=== PATIENT | female | born 1960 | race Caucasian/White ===

== ENCOUNTER 2018-01-22 06:26 | Day surgery (SDC) | payer OTHER ==
[2018-01-17 11:16] VITALS: BMI 26.4
[~2018-01-22 06:26] MED LIST: LACTATED RINGERS 1,000 ML IV SCH
[2018-01-22] MEDS ORDERED: LACTATED RINGERS 1,000 ML IV ONE ×2 (07:20)
[2018-01-22 07:24] VITALS: RESP 16; TEMP 98.4
[2018-01-22] MEDS ORDERED: LIDOCAINE 1% 20 ML VIAL (10MG/ML) FOR IV START INTRADERMA ONE (07:27)
[2018-01-22] MEDS ORDERED: PROPOFOL 10 MG/ML 20 ML VIAL IV ONE (07:33)
[2018-01-22] MEDS ORDERED: LIDOCAINE 1% INJ 10MG/ML (20 ML MDV) ONE (07:33)
--- NOTE | 2018-01-22 07:51 | P.GSHP ---
History of Present Illness H&P Date: 01/22/18 CHIEF COMPLAINT: Colon screen HISTORY OF PRESENT ILLNESS: The patient is a 57-year-old female who presents for colon screen. Lower endoscopy was offered for further evaluation and management. PAST MEDICAL HISTORY: Please see list. PAST SURGICAL HISTORY: Please see list. MEDICATIONS: Please see list. ALLERGIES: Please see list. SOCIAL HISTORY: No illicit drug use FAMILY HISTORY: No reports of Crohn disease or ulcerative colitis. REVIEW OF ORGAN SYSTEMS: CONSTITUTIONAL: No reports of fevers or chills. PHYSICAL EXAM: VITAL SIGNS: Stable GENERAL: Well-developed pleasant in no acute distress. HEENT: No scleral icterus. Extraocular movements grossly intact. Moist buccal mucosa. NECK: Supple without lymphadenopathy. CHEST: Unlabored respirations. Equal bilateral excursions. CARDIOVASCULAR: Regular rate and rhythm. Distal 2+ pulses. ABDOMEN: Soft, nontender, nondistended. MUSCULOSKELETAL: No clubbing, cyanosis, or edema. ASSESSMENT: 1. Colon screen. PLAN: 1. Recommend proceeding with a lower endoscopy Past Medical History Past Medical History: Hyperlipidemia, Thyroid Disorder History of Any Multi-Drug Resistant Organisms: None Reported Past Surgical History: Orthopedic Surgery, Tubal Ligation Additional Past Surgical History / Comment(s): BILAT CTR. LT LITTLE FINGER SX Past Anesthesia/Blood Transfusion Reactions: No Reported Reaction Additional Past Anesthesia/Blood Transfusion Reaction / Comment(s): SLOW TO WAKE UP Smoking Status: Current every day smoker - Past Family History Mother Family Medical History: Cancer Father Family Medical History: Cancer Medications and Allergies Home Medications Medication Instructions Recorded Confirmed Type Cholecalciferol [Vitamin D3] 3,000 unit PO DAILY 01/17/18 01/22/18 History Levothyroxine Sodium [Synthroid] 37.5 mcg PO Q2D 01/17/18 01/22/18 History Levothyroxine Sodium [Synthroid] 200 mcg PO DAILY 01/17/18 01/22/18 History Simvastatin [Zocor] 20 mg PO HS 01/17/18 01/22/18 History Allergies Allergy/AdvReac Type Severity Reaction Status Date / Time No Known Allergies Allergy Verified 01/22/18 07:18 Surgical - Exam Vital Signs Temp Pulse Resp BP Pulse Ox 98.4 F 86 16 140/89 98 01/22/18 07:22 01/22/18 07:22 01/22/18 07:22 01/22/18 07:22 01/22/18 07:22
--- NOTE | 2018-01-22 08:06 | P.PCN ---
Date of Procedure: 01/22/18 Description of Procedure: PREOPERATIVE DIAGNOSIS: Colonoscopy screening. POSTOPERATIVE DIAGNOSIS: Colonoscopy screening. Ascending colon polyp Descending and sigmoid colon diverticulosis OPERATION: Colonoscopy to the ileocecal valve and appendiceal orifice. Colonoscopy with cold forceps biopsy. SURGEON: Kaila Villarreal MD. ANESTHESIA: MAC. INDICATIONS: The patient is a 57-year-old female who presents for colonoscopy screening. Benefits and risks were described and informed consent was obtained. DESCRIPTION OF PROCEDURE: The patient had undergone Gatorade, MiraLAX and Dulcolax prep. She had been brought into the operating room and laid in the left lateral decubitus position. After adequate intravenous sedation, the rectum was examined with 2% lidocaine jelly. No external hemorrhoids were encountered. The rectal tone was within normal limits. No lesions were palpated in the rectal vault. An Olympus colonoscope was advanced until the ileocecal valve and appendiceal orifice were clearly viewed. The prep was fair with visualization however, moderate corn was found. The scope was removed to visualize the mucosal folds. Scattered diverticulosis was found along the descending and sigmoid colon. Ascending colon polyp, flat 4 mm was treated with cold forcep biopsy. No evidence of focal colitis was found. Retroflexion of the scope demonstrated no grade 1 internal hemorrhoids. The colon was desufflated. The patient had tolerated the procedure well. Withdrawal time was over 6 minutes. FINDINGS: No internal hemorrhoids. Sigmoid descending diverticulosis No external hemorrhoids. No arteriovenous malformations. Removal of 1 polyps from the ascending colon: - Cold forceps biopsy ascending colon, 4 mm flat villous polyp. No focal colitis. RECOMMENDATIONS: Repeat colonoscopy in 3 years, 2020 Plan - Discharge Summary New Discharge Prescriptions: No Action Cholecalciferol [Vitamin D3] 3,000 unit PO DAILY Simvastatin [Zocor] 20 mg PO HS Levothyroxine Sodium [Synthroid] 37.5 mcg PO Q2D Levothyroxine Sodium [Synthroid] 200 mcg PO DAILY Discharge Medication List Cholecalciferol [Vitamin D3] 3,000 unit PO DAILY 01/17/18 [History] Levothyroxine Sodium [Synthroid] 37.5 mcg PO Q2D 01/17/18 [History] Levothyroxine Sodium [Synthroid] 200 mcg PO DAILY 01/17/18 [History] Simvastatin [Zocor] 20 mg PO HS 01/17/18 [History]
[2018-01-22 08:37] VITALS: BP 149/90; PULSE 77
== END 2018-01-22 08:52 | disposition home or self-care (01) ==
LOC: ORWHC2ENDO 06:26
PROVIDERS: ATTEND Surgery Plastic and Reconstructive Surgery
DX: Z12.11 Encounter for screening for malignant neoplasm of colon (principal); D12.2 Benign neoplasm of ascending colon; E78.5 Hyperlipidemia, unspecified; E07.9 Disorder of thyroid, unspecified; K57.30 Diverticulosis of large intestine without perforation or abscess without bleeding; F17.210 Nicotine dependence, cigarettes, uncomplicated; Z98.51 Tubal ligation status; Z79.899 Other long term (current) drug therapy
CPT/HCPCS: 88305; 45380; J2001; J2704

== ENCOUNTER → 2018-05-08 | Outpatient (CLI) | payer OTHER ==
--- NOTE | 2018-05-14 08:58 | MM ---
Reason for exam: screening (asymptomatic). Last mammogram was performed 6 years and 10 months ago. History: Patient is postmenopausal. Family history of breast cancer in maternal aunt. Physical Findings: A clinical breast exam by your physician is recommended on an annual basis and results should be correlated with mammographic findings. MG Screening Mammo w CAD Bilateral CC and MLO view(s) were taken. Prior study comparison: July 16, 2011, bilateral digital screening mammo w/CAD. June 01, 2005, bilateral screening mammogram w/CAD. The breast tissue is heterogeneously dense. This may lower the sensitivity of mammography. No suspicious abnormality. No significant changes when compared with prior studies. ASSESSMENT: Negative, BI-RAD 1 RECOMMENDATION: Routine screening mammogram of both breasts in 1 year.
== END | disposition home or self-care (01) ==
LOC: RADMAMWWP 09:57
PROVIDERS: ATTEND Family Medicine
DX: Z12.31 Encounter for screening mammogram for malignant neoplasm of breast (principal)
CPT/HCPCS: 77067

== ENCOUNTER → 2019-01-25 | Outpatient (CLI) | payer OTHER ==
--- NOTE | 2019-01-25 11:37 | US ---
EXAMINATION TYPE: US extremity nonvasc mass RT DATE OF EXAM: 01/25/2019 COMPARISON: NONE CLINICAL HISTORY: R22.41, SWELLING MASS, RT LOWER LIMB. Patient has lump behind right knee that is visible. Scanned directly over lump, right pop fossa. There is a 6.5 x 2.0 x 3.cm complex fluid collection not ed. Pop fossa vessels are patent. IMPRESSION: 1. 6.5 CM RIGHT POPLITEAL FOSSA CYST. 2. NO EVIDENCE OF DVT.
== END | disposition home or self-care (01) ==
LOC: RADUSMAIN 10:48
PROVIDERS: ATTEND Internal Medicine
DX: M71.21 Synovial cyst of popliteal space [Baker], right knee (principal)

== ENCOUNTER → 2021-10-27 | Outpatient (CLI) | payer OTHER | END | disposition home or self-care (01) | LOC: LABWHC1 12:42 | PROVIDERS: ATTEND Family Medicine | DX: Z20.822 Contact with and (suspected) exposure to COVID-19 (principal) | CPT/HCPCS: U0003; C9803; U0005 ==

== ENCOUNTER → 2021-11-03 | Outpatient (CLI) | payer OTHER | END | disposition home or self-care (01) | LOC: LABWHC1 14:16 | PROVIDERS: ATTEND Family Medicine | DX: Z20.822 Contact with and (suspected) exposure to COVID-19 (principal) | CPT/HCPCS: U0003; C9803; U0005 ==

== ENCOUNTER 2022-09-12 15:27 | Inpatient (IN) | payer OTHER ==
[2022-09-12 17:45] LABS: Appearance,Urine Clear (Clear); Bilirubin,Urine Negative (Negative); Blood,Urine Negative (Negative); Color,Urine Colorless; Glucose,Urine (UA) Negative (Negative); Ketones,Urine Negative (Negative); Leukocyte Esterase,Urine Negative (Negative); Nitrite,Urine Negative (Negative); PH, Urine 5.5 (5.0-8.0); Protein,Urine Negative (Negative); Specific Gravity,Urine 1.004 (1.001-1.035); Urobilinogen,Urine <2.0 mg/dL (<2.0)
[2022-09-12] MEDS ORDERED: MORPHINE SULFATE 4 MG/ML SYRINGE IVP STA (22:05)
[2022-09-12 22:26] LABS: Basophils # (A) 0.1 k/uL (0-0.2); Basophils % (A) 1 %; Eosinophils # (A) 0.2 k/uL (0-0.7); Eosinophils % (A) 2 %; HCT 42.3 % (34.0-46.0); HGB 14.3 gm/dL (11.4-16.0); Lymphocytes # (A) 2.3 k/uL (1.0-4.8); Lymphocytes % (A) 24 %; MCH 31.9 pg (25.0-35.0); MCHC 33.7 g/dL (31.0-37.0); MCV 94.7 fL (80.0-100.0); Mean Platelet Volume 8.3; Monocytes # (A) 0.5 k/uL (0-1.0); Monocytes % (A) 6 %; Neutrophils # (A) 6.2 k/uL (1.3-7.7); Neutrophils % (A) 66 %; Platelet Count 250 k/uL (150-450); RBC 4.47 m/uL (3.80-5.40); RDW 12.4 % (11.5-15.5); WBC 9.4 k/uL (3.8-10.6)
[2022-09-12 22:40] LABS: ALT 23 U/L (4-34); AST 30 U/L (14-36); African American GFR (CKD) >90 (>60 ml/min/1.73 sqM); Albumin 4.7 g/dL (3.5-5.0); Alkaline Phosphatase 86 U/L (38-126); Anion Gap 5 mmol/L; Blood Urea Nitrogen 11 mg/dL (7-17); Calcium 9.2 mg/dL (8.4-10.2); Carbon Dioxide 28 mmol/L (22-30); Chloride 105 mmol/L (98-107); Glucose 89 mg/dL (74-99); Non-African American GFR(CKD) 90 (>60 ml/min/1.73 sqM); Sodium 138 mmol/L (137-145); Total Bilirubin 0.7 mg/dL (0.2-1.3); Total Protein 7.4 g/dL (6.3-8.2)
--- NOTE | 2022-09-12 23:54 | CT ---
EXAMINATION TYPE: CT abdomen pelvis w con DATE OF EXAM: 09/12/2022 COMPARISON: None HISTORY: Back pain x [address] DLP: 626.1 mGycm Automated exposure control for dose reduction was used. CONTRAST: Performed with IV Contrast, patient injected with 100ml mL of Isovue 300. Images obtained from the diaphragm to the floor the pelvis with the IV contrast. The lung bases are clear. No pleural effusion. Heart size is normal. No pericardial effusion. Liver s pleen and stomach pancreas gallbladder appear intact. The bile ducts are not dilated. There is no adrenal mass. There is significant right-sided hydronephrosis. Delayed images show a stevan yed right-sided pyelogram. There is no retroperitoneal adenopathy. The lumbar vertebrae have normal alignment. No compression fracture. There is degenerative disc space narrowing at L4-5 and L5-S1. Facet joints are intact. The bony pelvis is intact. The hip joints are intact. There is no mesenteric edema. No ascites. No sign of free air. Appendix is posterior and appears norm al. There are multiple sigmoid diverticula. No sign of diverticulitis. IMPRESSION: There is significant right-sided hydronephrosis without renal atrophy. Obstructing calculus not seen. This could be UPJ obstruction. Normal appendix. Sigmoid diverticulosis.
[2022-09-13] MEDS ORDERED: NALOXONE 0.4 MG/ML 1 ML VIAL IV PRN (01:33)
[2022-09-13] MEDS ORDERED: MORPHINE SULFATE 4 MG/ML SYRINGE IV PRN (01:33)
--- NOTE | 2022-09-13 01:33 | ED ---
Female Urogenital HPI - General Chief complaint: Urogenital Stated complaint: irregular ultrasound Time Seen by Provider: 09/12/22 21:54 Source: patient Mode of arrival: ambulatory Limitations: no limitations - History of Present Illness Initial comments: 52-year-old female with past medical history of hyperlipidemia who presents to the emergency Department with abnormal ultrasound. She has had right-sided back pain for the past 3 days. She saw her primary care doctor who sent her for an ultrasound. Ultrasound was performed today as an outpatient study. I saw that the patient had significant right-sided hydronephrosis. Because of this they re commended that she come into the ER. Patient reports to 10 out of 10 pain. Has been urinating without difficulty. No history of kidney issues. No hematuria or dysuria. Denies history of renal stones. She denies any fevers. No nausea or vomiting. No radiation of the pain. No other alleviating, precipitating or modifying factors - Related Data Home Medications Medication Instructions Recorded Confirmed Levothyroxine Sodium [Synthroid] 37.5 mcg PO Q2D 01/17/18 09/13/22 Levothyroxine Sodium [Synthroid] 200 mcg PO DAILY 01/17/18 09/13/22 Simvastatin [Zocor] 20 mg PO HS 01/17/18 09/13/22 Cholecalciferol (Vitamin D3) 75 mcg PO DAILY 09/13/22 09/13/22 [Vitamin D3 (3000 Iu)] Previous Rx's Medication Instructions Recorded HYDROcodone/APAP 5-325MG [[place] 1 tab PO Q6HR PRN 3 Days #10 tab 09/14/22 5-325] Ketorolac [Toradol] 10 mg PO Q6HR PRN #15 tab 09/14/22 Allergies Allergy/AdvReac Type Severity Reaction Status Date / Time No Known Allergies Allergy Verified 09/13/22 08:04 Review of Systems ROS Statement: Those systems with pertinent positive or pertinent negative responses have been documented in the HPI. ROS Other: All systems not noted in ROS Statement are negative. Past Medical History Past Medical History: Hyperlipidemia, Thyroid Disorder History of Any Multi-Drug Resistant Organisms: None Reported Past Surgical History: Orthopedic Surgery, Tubal Ligation Additional Past Surgical History / Comment(s): BILAT CTR. LT LITTLE FINGER SX Past Anesthesia/Blood Transfusion Reactions: No Reported Reaction Additional Past Anesthesia/Blood Transfusion Reaction / Comment(s): SLOW TO WAKE UP Past Psychological History: No Psychological Hx Reported Smoking Status: Current every day smoker Past Alcohol Use History: None Reported Past Drug Use History: None Reported - Past Family History Mother Family Medical History: Cancer Father Family Medical History: Cancer General Exam Limitations: no limitations General appearance: alert, in no apparent distress Head exam: Present: atraumatic, normocephalic, normal inspection Eye exam: Present: normal appearance, PERRL, EOMI. Absent: scleral icterus, conjunctival injection, periorbital swelling ENT exam: Present: normal exam, mucous membranes moist Neck exam: Present: normal inspection. Absent: tenderness, meningismus, lymphadenopathy Respiratory exam: Present: normal lung sounds bilaterally. Absent: respiratory distress, wheezes, rales, rhonchi, stridor Cardiovascular Exam: Present: regular rate, normal rhythm, normal heart sounds. Absent: systolic murmur, diastolic murmur, rubs, gallop, clicks GI/Abdominal exam: Present: soft, normal bowel sounds. Absent: distended, tenderness, guarding, rebound, rigid Extremities exam: Present: normal inspection, full ROM, normal capillary refill. Absent: tenderness, pedal edema, joint swelling, calf tenderness Back exam: Present: CVA tenderness (R) Neurological exam: Present: alert, oriented X3, CN II-XII intact Psychiatric exam: Present: normal affect, normal mood Skin exam: Present: warm, dry, intact, normal color. Absent: rash Course Vital Signs 09/12/22 09/12/22 09/13/22 16:36 21:57 02:19 Temperature 97.6 F 98.4 F 98.7 F Pulse Rate 77 82 72 Respiratory 18 16 16 Rate Blood Pressure 141/86 142/85 138/74 O2 Sat by Pulse 97 100 97 Oximetry Medical Decision Making - Medical Decision Making Upon arrival patient was placed into room 15. Thorough history and physical exam was performed. IV is established. I did review the patient's ultrasound which demonstrated significant right-sided hydronephrosis. I recommended follow-up CT which is performed and images are interpreted by myself. There is significant right-sided hydronephrosis without renal atrophy. Obstructing calculus not seen. Possible UPJ obstruction. These results are discussed the patient. She was given 4 mg of morphine for pain control. Patient is reevaluat ed and states that the pain is tolerable at this time however still pretty significant. I did discuss diagnosis, differential and treatment options. Called and spoke with Dr. Tinajero. He states that he will obstipation overnight if the patient was agreeable for evaluation in the morning. Patient was agreeable to this. She is awaiting a bed on the floor in stable condition - Lab Data Result diagrams: 09/14/22 05:34 09/14/22 05:34 Lab Results 09/12/22 09/12/22 09/12/22 Range/Units 16:52 22:11 22:11 WBC 9.4 (3.8-10.6) k/uL RBC 4.47 (3.80-5.40) m/uL Hgb 14.3 (11.4-16.0) gm/dL Hct 42.3 (34.0-46.0) % MCV 94.7 (80.0-100.0) fL MCH 31.9 (25.0-35.0) pg MCHC 33.7 (31.0-37.0) g/dL RDW 12.4 (11.5-15.5) % Plt Count 250 (150-450) k/uL MPV 8.3 Neutrophils % 66 % Lymphocytes % 24 % Monocytes % 6 % Eosinophils % 2 % Basophils % 1 % Neutrophils # 6.2 (1.3-7.7) k/uL Lymphocytes # 2.3 (1.0-4.8) k/uL Monocytes # 0.5 (0-1.0) k/uL Eosinophils # 0.2 (0-0.7) k/uL Basophils # 0.1 (0-0.2) k/uL Sodium 138 (137-145) mmol/L Potassium 4.0 (3.5-5.1) mmol/L Chloride 105 (98-107) mmol/L Carbon Dioxide 28 (22-30) mmol/L Anion Gap 5 mmol/L BUN 11 (7-17) mg/dL Creatinine 0.72 (0.52-1.04) mg/dL Est GFR (CKD-EPI)AfAm >90 (>60 ml/min/1.73 sqM) Est GFR (CKD-EPI)NonAf 90 (>60 ml/min/1.73 sqM) Glucose 89 (74-99) mg/dL Calcium 9.2 (8.4-10.2) mg/dL Total Bilirubin 0.7 (0.2-1.3) mg/dL AST 30 (14-36) U/L ALT 23 (4-34) U/L Alkaline Phosphatase 86 (38-126) U/L Total Protein 7.4 (6.3-8.2) g/dL Albumin 4.7 (3.5-5.0) g/dL Urine Color Colorless Urine Appearance Clear (Clear) Urine pH 5.5 (5.0-8.0) Ur Specific [place] 1.004 (1.001-1.035) Urine Protein Negative (Negative) Urine Glucose (UA) Negative (Negative) Urine Ketones Negative (Negative) Urine Blood Negative (Negative) Urine Nitrite Negative (Negative) Urine Bilirubin Negative (Negative) Urine Urobilinogen <2.0 (<2.0) mg/dL Ur Leukocyte Esterase Negative (Negative) Disposition Clinical Impression: Right flank pain, Hydronephrosis Disposition: ADMITTED IP TO THIS [facility] Condition: Good Is patient prescribed a controlled substance at d/c from ED?: No Time of Disposition: Decision to Admit Reason: Admit from [facility] Decision Date: 09/13/22 Decision Time:
[2022-09-13] MEDS ORDERED: KETOROLAC 15 MG/ML 1 ML VIAL IVP PRN (11:26)
--- NOTE | 2022-09-13 14:39 | P.GSHP ---
History of Present Illness H&P Date: 09/13/22 Chief Complaint: Right hydronephrosis This is a 62-year-old female that presented to the hospital with severe right- sided flank pain associated with nausea. Underwent a CT abdomen and pelvis on presentation that showed evidence of severe right-sided hydronephrosis with gil sition point at the UPJ. Denies any previous history of flank pain or similar symptoms in the past. Denies any dysuria or gross hematuria. Denies any previous renal or abdominal surgeries. No known family history of renal malignancy. Since admission she is still having right-sided flank pain but slightly improved. Denies any association between fluid intake and her flank pain - Constitutional Constitutional: Denies chills, Denies fever - EENT Ears, nose, mouth and throat: Denies headache, Denies sore throat - Cardiovascular Cardiovascular: Denies chest pain, Denies shortness of breath - Respiratory Respiratory: Denies cough, Denies 7 - Gastrointestinal Gastrointestinal: Reports nausea, Denies vomiting - Genitourinary (Female) Genitourinary: Reports flank pain, Denies dysuria, Denies hematuria - Genitourinary (Male) Genitourinary: Denies dysuria, Denies hematuria - Neurological Neurological: Denies numbness, Denies weakness Past Medical History Past Medical History: Hyperlipidemia, Thyroid Disorder History of Any Multi-Drug Resistant Organisms: None Reported Past Surgical History: Orthopedic Surgery, Tubal Ligation Additional Past Surgical History / Comment(s): thyroidectomy. LT LITTLE FINGER SX Past Anesthesia/Blood Transfusion Reactions: No Reported Reaction Additional Past Anesthesia/Blood Transfusion Reaction / Comment(s): SLOW TO WAKE UP Past Psychological History: No Psychological Hx Reported Smoking Status: Current every day smoker Past Alcohol Use History: None Reported Additional Past Alcohol Use History / Comment(s): SMOKES 1 PPD SINCE 1977 Past Drug Use History: None Reported - Past Family History Mother Family Medical History: Cancer Father Family Medical History: Cancer Medications and Allergies Home Medications Medication Instructions Recorded Confirmed Type Levothyroxine Sodium [Synthroid] 37.5 mcg PO Q2D 01/17/18 09/13/22 History Levothyroxine Sodium [Synthroid] 200 mcg PO DAILY 01/17/18 09/13/22 History Simvastatin [Zocor] 20 mg PO HS 01/17/18 09/13/22 History Cholecalciferol (Vitamin D3) 75 mcg PO DAILY 09/13/22 09/13/22 History [Vitamin D3 (3000 Iu)] Allergies Allergy/AdvReac Type Severity Reaction Status Date / Time No Known Allergies Allergy Verified 09/13/22 08:04 Surgical - Exam Vital Signs Temp Pulse Resp BP Pulse Ox 97.6 F 77 18 141/86 97 09/12/22 16:36 09/12/22 16:36 09/12/22 16:36 09/12/22 16:36 09/12/22 16:36 - General no distress, moderate pain - Eyes normal ocular movement, no pale - ENT normal nares, normal mucosa - Respiratory normal expansion, normal respiratory effort - Abdomen Abdomen: soft, tender (Right flank), no distended - Psychiatric oriented to time, oriented to person, oriented to place Results - Labs 09/12/22 22:11 09/12/22 22:11 Diabetes panel 09/12/22 Range/Units 22:11 Sodium 138 (137-145) mmol/L Potassium 4.0 (3.5-5.1) mmol/L Chloride 105 (98-107) mmol/L Carbon Dioxide 28 (22-30) mmol/L BUN 11 (7-17) mg/dL Creatinine 0.72 (0.52-1.04) mg/dL Glucose 89 (74-99) mg/dL Calcium 9.2 (8.4-10.2) mg/dL AST 30 (14-36) U/L ALT 23 (4-34) U/L Alkaline Phosphatase 86 (38-126) U/L Total Protein 7.4 (6.3-8.2) g/dL Albumin 4.7 (3.5-5.0) g/dL Calcium panel 09/12/22 Range/Units 22:11 Calcium 9.2 (8.4-10.2) mg/dL Albumin 4.7 (3.5-5.0) g/dL Pituitary panel 09/12/22 Range/Units 22:11 Sodium 138 (137-145) mmol/L Potassium 4.0 (3.5-5.1) mmol/L Chloride 105 (98-107) mmol/L Carbon Dioxide 28 (22-30) mmol/L BUN 11 (7-17) mg/dL Creatinine 0.72 (0.52-1.04) mg/dL Glucose 89 (74-99) mg/dL Calcium 9.2 (8.4-10.2) mg/dL Adrenal panel 09/12/22 Range/Units 22:11 Sodium 138 (137-145) mmol/L Potassium 4.0 (3.5-5.1) mmol/L Chloride 105 (98-107) mmol/L Carbon Dioxide 28 (22-30) mmol/L BUN 11 (7-17) mg/dL Creatinine 0.72 (0.52-1.04) mg/dL Glucose 89 (74-99) mg/dL Calcium 9.2 (8.4-10.2) mg/dL Total Bilirubin 0.7 (0.2-1.3) mg/dL AST 30 (14-36) U/L ALT 23 (4-34) U/L Alkaline Phosphatase 86 (38-126) U/L Total Protein 7.4 (6.3-8.2) g/dL Albumin 4.7 (3.5-5.0) g/dL Assessment and Plan Assessment: 62-year-old female admitted to the hospital right-sided hydronephrosis. I reviewed her CT abdomen and pelvis that is consistent with UPJ obstruction. Could not clearly identify a crossing vessel. Her urinalysis and creatinine is within normal limits. I discussed with her for right-sided the UPJ the most definitive way to address it would be right-sided pyeloplasty, but this can be arranged as an outpatient for her. Risk and benefit of the surgery was discuss ed with her. At this time we'll continue with pain medications, discussed with her if the pain persists then will proceed with stent insertion, but if resolves then we'll discharge home and arrange for outpatient pyeloplasty
[2022-09-13] MEDS ORDERED: ATORVASTATIN 10 MG TAB PO SCH (21:00)
[2022-09-14] MEDS ORDERED: LEVOTHYROXINE 100 MCG TAB PO SCH (06:30)
[2022-09-14] MEDS ORDERED: LEVOTHYROXINE 75 MCG TAB PO SCH (06:30)
[2022-09-14] MEDS ORDERED: CHOLECALCIFEROL 25 MCG (1000 IU) TABLET PO SCH (09:00)
[2022-09-14 09:31] LABS: Basophils # (A) 0.08 X 10*3/uL (0.00-0.10); Basophils % (A) 1.1 %; Eosinophils # (A) 0.34 X 10*3/uL (0.04-0.35); Eosinophils % (A) 4.9 %; HGB 12.6 g/dL (12.0-15.0); Immature Grans, Automated 0.3 %; Lymphocytes # (A) 2.15 X 10*3/uL (0.90-5.00); Lymphocytes % (A) 30.8 %; MCH 30.7 pg (27.0-32.0); MCHC 33.2 g/dL (32.0-37.0); MCV 92.5 fL (80.0-97.0); Mean Platelet Volume 10.2 fL (9.5-12.2); Monocytes # (A) 0.53 X 10*3/uL (0.20-1.00); Monocytes % (A) 7.6 %; NRBC Per 100 WBC 0 /100 WBCS (0.0-0.0); Neutrophils # (A) 3.85 X 10*3/uL (1.80-7.70); Neutrophils % (A) 55.3 %; Platelet Count 231 X 10*3/uL (140-440); RBC 4.11 X 10*6/uL (4.10-5.20); RDW 12.8 % (11.5-14.5); WBC 6.97 X 10*3/uL (4.50-10.00)
[2022-09-14 09:48] LABS: African American GFR (CKD) 78.3 (60.0-200.0); Anion Gap 9.5 mmol/L (10.00-18.00); BUN/Creat Ratio 22.33 Ratio (12.00-20.00); Blood Urea Nitrogen 20.1 mg/dL (9.0-27.0); Calcium 8.8 mg/dL (8.7-10.3); Carbon Dioxide 25.5 mmol/L (20.0-27.5); Non-African American GFR(CKD) 67.6 (60.0-200.0); Potassium 3.9 mmol/L (3.5-5.5)
--- NOTE | 2022-09-14 11:36 | P.DS ---
Providers Date of admission: 09/13/22 01:34 Expected date of discharge: 09/14/22 Attending physician: Markell Tinajero MD Primary care physician: Buzz Thapa - Discharge Diagnosis(es) (1) Hydronephrosis Status: Acute (2) Right flank pain Status: Acute Hospital Course: This is a 62-year-old female that presented to the hospital with severe right- sided flank pain associated with nausea. Underwent a CT abdomen and pelvis on presentation that showed evidence of severe right-sided hydronephrosis with transition point at the UPJ. Could not clearly identify a crossing vessel. Denied any previous history of flank pain or similar symptoms in the past. Denied any dysuria or gross hematuria. Her urinalysis and creatinine is within normal limits. Denies any previous renal or abdominal surgeries. No known family history of renal malignancy. Since admission she is still having right- sided flank pain but slightly improved. Denies any association between fluid intake and her flank pain. A difinitive way to address the UPJ obstruction is with aright-sided pyeloplasty, but this can be arranged as an outpatient for her. Risk and benefit of the surgery was discussed with her. It was discussed with her if the pain persists then will proceed with stent insertion,. If resolves then we'll discharge home and arrange for outpatient pyeloplasty. Her pain has significantly improved over the last 24 hours with the addition of Toradol. She is tolerating a diet and denies any nausea or vomiting. She is voiding without difficulty and denies any hematuria or dysuria. She has been ambulating in her room. She states she would like to go home and schedule a outpatient pyleoplasty. She is discharged with instructions to avoid alcohol and caffeine. Prescriptions for Toradol and Mel[place] have been sent to her pharmacy. She will follow up with Dr. Tinajero in one week. Impression and plan of care have been directed as dictated by the signing physician. Davida Cleveland nurse practitioner acting as scribe for signing physician. Davida Cleveland [facility] Palliative Care/Urology Spectralink [email or web address] Email: [email or web address] I personally performed and participated in the history, physical, the decision making, I agree with the assessment and plan of [employer] Patient Condition at Discharge: Good Plan - Discharge Summary New Discharge Prescriptions: New HYDROcodone/APAP 5-325MG [[place] 5-325] 1 tab PO Q6HR PRN 3 Days #10 tab PRN Reason: Pain Ketorolac [Toradol] 10 mg PO Q6HR PRN #15 tab PRN Reason: Pain Continue Simvastatin [Zocor] 20 mg PO HS Levothyroxine Sodium [Synthroid] 37.5 mcg PO Q2D Levothyroxine Sodium [Synthroid] 200 mcg PO DAILY Cholecalciferol (Vitamin D3) [Vitamin D3 (3000 Iu)] 75 mcg PO DAILY Discharge Medication List Levothyroxine Sodium [Synthroid] 37.5 mcg PO Q2D 01/17/18 [History] Levothyroxine Sodium [Synthroid] 200 mcg PO DAILY 01/17/18 [History] Simvastatin [Zocor] 20 mg PO HS 01/17/18 [History] Cholecalciferol (Vitamin D3) [Vitamin D3 (3000 Iu)] 75 mcg PO DAILY 09/13/22 [History] HYDROcodone/APAP 5-325MG [[place] 5-325] 1 tab PO Q6HR PRN 3 Days #10 tab 09/14/22 [Rx] Ketorolac [Toradol] 10 mg PO Q6HR PRN #15 tab 09/14/22 [Rx] Follow up Appointment(s)/Referral(s): Markell Tinajero MD [STAFF PHYSICIAN] - 1 Week (Office will call you with your appointment date and time.) Buzz Thapa DO [Primary Care Provider] - 09/18/22 2:30 pm Patient Instructions/Handouts: Hydrocodone/Acetaminophen (By mouth), Ketorolac (By mouth), Hydronephrosis (DC) Activity/Diet/Wound Care/Special Instructions: -Please follow up with Dr. Tinajero in one week -Your outpatient surgery will be scheduled by the office. - Avoid alcohol and caffeine - Take pain medication as prescribed Pt has been a patient at [facility] from 09/12/22 to 09/14/22, she may return to work on Saturday09/17/22. Discharge/Stand Alone Forms: Work/Release Restrictions Form Discharge Disposition: HOME SELF-CARE
[2022-09-14 12:02] VITALS: BP 125/82; PULSE 72; RESP 16; TEMP 97.9
== END 2022-09-14 13:18 | disposition home or self-care (01) | DRG 694 ==
LOC: EC 15:27 → 4SSUR 09-13 01:34
PROVIDERS: ADMIT Urology; ATTEND Urology
DX: N13.1 Hydronephrosis with ureteral stricture, not elsewhere classified (principal); E78.5 Hyperlipidemia, unspecified; E89.0 Postprocedural hypothyroidism; K59.00 Constipation, unspecified; F17.210 Nicotine dependence, cigarettes, uncomplicated; Z51.5 Encounter for palliative care; Z79.890 Hormone replacement therapy; Z98.51 Tubal ligation status
CPT/HCPCS: 36415; 74177; 80048; 80053; 81003; 85025; 96374; 99285

== ENCOUNTER → 2022-09-12 | Outpatient (CLI) | payer OTHER ==
--- NOTE | 2022-09-12 15:17 | US ---
EXAMINATION TYPE: US kidneys/renal and bladder DATE OF EXAM: 09/12/2022 COMPARISON: NONE CLINICAL HISTORY: R10.9 RIGHT FLANK PAIN. extreme right flank pain x 3 days EXAM MEASUREMENTS: Right Kidney: 11.4 x 5.5 x 5.1 cm Left Kidney: 9.3 x 5.0 x 5.5 cm Right Kidney: severe hydronephrosis seen with no obstruction seen via US Left Kidney: lateral cyst = 1.5 x 1.5 x 1.3cm Bladder: wnl Spoke to Dr Perez, he recommended patient go to [facility] or if she can stand the pain, he will send to uro logist. No nephrolithiasis is seen. No solid masses are identified. The urinary bladder is anechoic. IMPRESSION: Severe right-sided hydronephrosis noted. Recommend CT for further evaluation.
== END | disposition home or self-care (01) ==
LOC: RADUSWWP 14:16
PROVIDERS: ATTEND Internal Medicine
DX: N13.30 Unspecified hydronephrosis (principal)
CPT/HCPCS: 76770

== ENCOUNTER → 2022-10-19 | Outpatient (CLI) | payer OTHER ==
[~2022-10-19] MED LIST changes: +FUROSEMIDE 10 MG/ML 2 ML VIAL IVP ONE; -LACTATED RINGERS 1,000 ML IV SCH
--- NOTE | 2022-10-19 15:07 | NM ---
INDICATION: Patient age:Female; 62 years old; Reason for study: N13.30 UNSPECIFIED HYDRONEPHROSIS; PHH. COMPARISON: Abdomen pelvis 09/12/2022. TECHNIQUE: 3 mCi of technetium 99m labeled MAG3 was administered intravenously. Dynamic posterior p erfusion images over the abdomen were obtained. This was followed by posterior functional images. 20 mg of intravenous Lasix was administered 9 minutes following radiotracer injection. Quantitative anal ysis was performed. FINDINGS: Dynamic perfusion images demonstrate prompt accumulation of radiotracer within both kidneys. Progress alicia calculation are radial tracer within the left collecting system or the course of the study with n o significant clearing. No washout of cortical activity from the right kidney. There is normal washou t of cortical activity and excretion of radiotracer from the left kidney. Split renal function for the kidneys (uptake %): 30 right and 70 left which is abnormal. Time of half Lasix is 25.8 minutes for the left kidney. This is prolonged however there is normal obey arance on the review of the dynamic images. Abnormal right kidney excretion curve with plateau demonstrated and no significant change in counts a fter Lasix injection. Normal right kidney excretion curve. IMPRESSION: 1. Findings consistent with obstruction of the left collecting system. 2. Quantitative analysis as above.
== END | disposition home or self-care (01) ==
LOC: RADNMMAIN 12:39
PROVIDERS: ATTEND Urology
DX: N13.30 Unspecified hydronephrosis (principal)
CPT/HCPCS: 78708; A9562

== ENCOUNTER → 2022-11-07 | Outpatient (CLI) | payer OTHER ==
[2022-11-07 10:41] LABS: Basophils # (A) 0.08 X 10*3/uL (0.00-0.10); Basophils % (A) 1.3 %; Eosinophils # (A) 0.29 X 10*3/uL (0.04-0.35); Eosinophils % (A) 4.7 %; HCT 37.6 % (37.2-46.3); HGB 12.1 g/dL (12.0-15.0); Immature Grans, Automated 0.2 %; Lymphocytes # (A) 2.16 X 10*3/uL (0.90-5.00); Lymphocytes % (A) 34.9 %; MCH 31.1 pg (27.0-32.0); MCHC 32.2 g/dL (32.0-37.0); MCV 96.7 fL (80.0-97.0); Mean Platelet Volume 10.7 fL (9.5-12.2); Monocytes # (A) 0.49 X 10*3/uL (0.20-1.00); Monocytes % (A) 7.9 %; NRBC Per 100 WBC 0 /100 WBCS (0.0-0.0); Neutrophils # (A) 3.16 X 10*3/uL (1.80-7.70); Platelet Count 241 X 10*3/uL (140-440); RBC 3.89 X 10*6/uL (4.10-5.20); RDW 12.8 % (11.5-14.5); WBC 6.19 X 10*3/uL (4.50-10.00)
[2022-11-07 11:01] LABS: African American GFR (CKD) 90.3 (60.0-200.0); Anion Gap 8.1 mmol/L (10.00-18.00); BUN/Creat Ratio 21.25 Ratio (12.00-20.00); Calcium 8.7 mg/dL (8.7-10.3); Carbon Dioxide 28.9 mmol/L (20.0-27.5); Non-African American GFR(CKD) 77.9 (60.0-200.0)
[2022-11-07 15:39] LABS: Appearance,Urine Clear (Clear); Bilirubin,Urine Negative (Negative); Blood,Urine Negative (Negative); Color,Urine Yellow (Yellow); Ketones,Urine Negative (Negative); Nitrite,Urine Negative (Negative); Specific Gravity,Urine 1.005 (1.001-1.030); Urobilinogen,Urine 0.2 (0.2,1.0)
== END | disposition home or self-care (01) ==
LOC: LABPAT 08:28
PROVIDERS: ATTEND Urology
DX: Z01.812 Encounter for preprocedural laboratory examination (principal); N13.30 Unspecified hydronephrosis
CPT/HCPCS: 80048; 81003; 85025; 87086

== ENCOUNTER → 2023-04-24 | Outpatient (CLI) | payer OTHER ==
[~2023-04-24] MED LIST changes: +FUROSEMIDE 10 MG/ML 2 ML VIAL IV ONE; -FUROSEMIDE 10 MG/ML 2 ML VIAL IVP ONE
--- NOTE | 2023-04-24 17:35 | NM ---
EXAMINATION TYPE: NM lasix renogram DATE OF EXAM: 04/24/2023 COMPARISON: 09/12/2022, 10/19/2022 renogram. CLINICAL INDICATION: Female, 62 years old with history of N13.30; Following administration of 9.88 mCi Tc 99m MAG3 with 20mg Lasix. Immediate images post injection FINDINGS: Left: 59.9 %. Right: 40.1 %. (Normal is within 10% of each other) Max renal flow left: 3.5 minutes. Max renal flow right: 5.5 minutes. (Normal: peak by 5 minutes). Satisfactory accumulation of radiotracer within both renal collecting systems. After the administrati on of Lasix, there is prompt excretion from both collecting systems. T 1/2 left: 15.1 minutes. T 1/2 right: 13.3 minutes. (normal range 10-15 min). IMPRESSION: Abnormally decreased right renal function. Appropriate bilateral response to Lasix. Borderline Delayed right renal peak flow The excretion curves demonstrated a blunted pattern on the right and normal curve on the left. IMPRESSION: Findings compatible with dilated nonobstructed right and normal left Lasix renogram. Prior Lasix rylie gram type o,. Was the right side that was obstructed.
== END | disposition home or self-care (01) ==
LOC: RADNMMAIN 12:51
PROVIDERS: ATTEND Urology
DX: N13.30 Unspecified hydronephrosis (principal); R94.4 Abnormal results of kidney function studies; Z79.01 Long term (current) use of anticoagulants
CPT/HCPCS: 78708; A9562